=== PATIENT | female | born 1985 | race Caucasian/White ===

== ENCOUNTER → 2017-04-30 | Outpatient (CLI) | payer OTHER ==
[~2017-04-30] MED LIST: BIOT25005 PO; CALC1CAP8 PO; CALC300T4 PO; CETI-158 PO; IBUP-1221 PO; MELA1TAB22 PO; MULT-224 PO; OMEP20TA62 PO; potassium PO
[2017-04-30 15:49] LABS: HEMATOCRIT 44.2 % (34.6-47.8); HEMOGLOBIN 15.1 g/dL (11.7-16.4); WHITE BLOOD COUNT 9.6 x10^3/uL (3.4-10)
== END | disposition home or self-care (01) ==
LOC: STAR 14:40
PROVIDERS: ATTEND Obstetrics & Gynecology
DX: Z30.2 Encounter for sterilization (principal)
CPT/HCPCS: 36415; 81003; 84703; 85025

== ENCOUNTER 2018-05-06 12:52 | Emergency (ER) | payer OTHER ==
[~2018-05-06] VITALS: Ht 175.3 cm; Wt 130.5 kg
[2018-05-06 15:13] LABS: BASOPHILS # (AUTO) 0.23 x10^3/uL (0-0.1); BASOPHILS % (AUTO) 2 % (0-1); EOSINOPHILS # (AUTO) 0.22 x10^3/uL (0-0.4); EOSINOPHILS % (AUTO) 2 % (1-7); LYMPHOCYTES # (AUTO) 2.97 x10^3/uL (1-3.4); LYMPHOCYTES % (AUTO) 26 % (22-44); MD NO; MEAN CORPUSCULAR HEMOGLOBIN 31.9 pg (27.0-34.8); MEAN CORPUSCULAR HGB CONC 34.4 g/dL (32.4-35.8); MEAN CORPUSCULAR VOLUME 92.8 fL (80-100); MEAN PLATELET VOLUME 8.8 fL (7.4-10.4); MONOCYTES # (AUTO) 0.64 x10^3/uL (0.2-0.8); MONOCYTES % (AUTO) 6 % (2-9); NEUTROPHILS % (AUTO) 64 % (42-75); PLATELET COUNT 310 x10^3/uL (130-400); RED BLOOD COUNT 4.72 x10^6/uL (3.82-5.3); RED CELL DISTRIBUTION WIDTH 13.1 % (9.6-15.2)
[2018-05-06 15:14] LABS: ALBUMIN 3.9 g/dL (3.4-5.0); ANION GAP 7 mmol/L (5-15); CALCIUM 8.9 mg/dL (8.5-10.1); CHLORIDE 107 mmol/L (98-107); CREATININE 0.89 mg/dL (0.55-1.02)
[2018-05-06] MEDS ORDERED: SODIUM CHLORIDE FLUSH 10ML SYR IVF ONE (16:00)
[2018-05-06 16:38] VITALS: BP 108/68
[2018-05-06] MEDS ORDERED: OMNIPAQUE 350 MG/ML, 100ML BOTTLE ONE (16:59)
== END 2018-05-06 17:47 | disposition home or self-care (01) ==
LOC: ED 17:10
DX: R06.00 Dyspnea, unspecified (principal); R07.89 Other chest pain; R41.1 Anterograde amnesia
CPT/HCPCS: 36415; 71046; 71275; 80048; 82040; 85025; 93005; 99285; Q9967

== ENCOUNTER 2019-03-01 22:17 | Day surgery (SDC) | payer OTHER ==
[~2019-03-01] VITALS: Ht 175.3 cm; Wt 128.4 kg
[~2019-03-01 22:17] MED LIST changes: -MULT-224 PO; +MULT-642 PO
[2019-03-01] MEDS ORDERED: SODIUM CHLORIDE FLUSH 10ML SYR IVF ONE (23:00)
[2019-03-01] MEDS ORDERED: FAMOTIDINE 20 MG/2 ML IVP ONE (23:00)
[2019-03-01] MEDS ORDERED: ONDANSETRON 2MG/ML, 2ML IVPush ONE (23:00)
[2019-03-01] MEDS ORDERED: MAALOX/HYOSCYAMINE/LIDOCAINE 45 ML BTL PO ONE (23:00)
[2019-03-01 23:31] LABS: BASOPHILS # (AUTO) 0.04 x10^3/uL (0-0.1); BASOPHILS % (AUTO) 0 % (0-1); EOSINOPHILS # (AUTO) 0.22 x10^3/uL (0-0.4); EOSINOPHILS % (AUTO) 3 % (1-7); LYMPHOCYTES # (AUTO) 2.59 x10^3/uL (1-3.4); LYMPHOCYTES % (AUTO) 29 % (22-44); MD NO; MEAN CORPUSCULAR HEMOGLOBIN 30.5 pg (27.0-34.8); MEAN CORPUSCULAR VOLUME 92.5 fL (80-100); MEAN PLATELET VOLUME 8.3 fL (7.4-10.4); MONOCYTES # (AUTO) 0.64 x10^3/uL (0.2-0.8); MONOCYTES % (AUTO) 7 % (2-9); NEUTROPHILS # (AUTO) 5.38 x10^3/uL (1.8-6.8); NEUTROPHILS % (AUTO) 61 % (42-75); PLATELET COUNT 265 x10^3/uL (130-400); RED BLOOD COUNT 4.38 x10^6/uL (3.82-5.3); RED CELL DISTRIBUTION WIDTH 14.3 % (9.6-15.2)
[2019-03-01 23:44] LABS: ALANINE AMINOTRANSFERASE 57 U/L (12-78); ALBUMIN 3.5 g/dL (3.4-5.0); ANION GAP 8 mmol/L (5-15); CALCIUM 8.7 mg/dL (8.5-10.1); CHLORIDE 108 mmol/L (98-107); CREATININE 0.76 mg/dL (0.55-1.02)
[2019-03-01 23:49] LABS: ALKALINE PHOSPHATASE 89 U/L (45-117); BILIRUBIN,TOTAL 0.4 mg/dL (0.2-1.0); TOTAL PROTEIN 7.6 g/dL (6.4-8.2)
--- NOTE | 2019-03-02 00:41 | NUR ---
PT IS HERE FOR EPIGASTRIC PAIN WITH LOWER BACK PAIN X 2 WEEKS. PT REPORTS THAT SHE HAS BEEN UNCOMFRTABLE WITH NO RELEIF. PT REPROTS HX OF GERDS AND NOT FEELING WELL PT DENIES INCREASED URINARY FREQUENCY OR PAINFUL URINATION. PT UNABLE TO PROVIDE UA. PT DENIES TRUAMA OR RECENT TRAVERL OR INGESTION OF NEW FOODS. PT IN BED, AWAITING FURTHER ORDERS. CALL LIGHT IN REACH.
[2019-03-02] MEDS ORDERED: MAALOX/HYOSCYAMINE/LIDOCAINE 45 ML BTL ONE (00:52)
[2019-03-02] MEDS ORDERED: ONDANSETRON 2MG/ML, 2ML ONE ×4 (00:52→05:18)
[2019-03-02] MEDS ORDERED: FAMOTIDINE 20 MG/2 ML ONE (00:52)
[2019-03-02] MEDS ORDERED: ONDANSETRON ODT 4 MG ONE (01:17)
[2019-03-02] MEDS ORDERED: FAMOTIDINE 20 MG TABLET ONE (01:17)
--- NOTE | 2019-03-02 01:32 | NUR ---
PT AT THIS TIME WOULD LIKE TO DO A OUTPT PROCEDURE. DISCUSSED WITH PT. PT VERBALIZED UNDERSTANDING. PT MEDICATED PER EMAR.
[2019-03-02] MEDS ORDERED: FAMOTIDINE 20 MG TABLET PO ONE (02:00)
[2019-03-02] MEDS ORDERED: ONDANSETRON ODT 4 MG PO ONE (02:00)
--- NOTE | 2019-03-02 02:11 | NUR ---
US CALLED TO WHY DELAY IN US READ IS OCCURING.
[2019-03-02] MEDS ORDERED: KETOROLAC 30 MG/1 ML ONE ×2 (02:22→05:18)
[2019-03-02] MEDS ORDERED: KETOROLAC 30 MG/1 ML IM ONE (02:30)
--- NOTE | 2019-03-02 02:58 | NUR ---
ASSUMED CARE OF PATIENT. REPORT GIVEN FROM FABIOLA HENRIQUEZ. PT IS NOT ABLE TO GIVE A UA AT THIS TIME.
[2019-03-02] MEDS ORDERED: SODIUM CHLORIDE 0.9% 1,000 ML IV ONE (03:01)
[2019-03-02] MEDS ORDERED: D5%-0.45% NACL 1,000 ML IV ONE (03:03)
[2019-03-02] MEDS ORDERED: CEFOTETAN PMX 1GM/50ML 50 ML ONE (03:04)
--- NOTE | 2019-03-02 03:07 | NUR ---
PIV PLACED AND MEDICATED PER EMAR. PT REPORT GIVEN TO MALISSA HICKS.
[2019-03-02] MEDS ORDERED: MORPHINE SULFATE 4 MG/ML, 1ML ONE (03:11)
--- NOTE | 2019-03-02 03:17 | NUR ---
NO BLOOD CULTURES NEEDED PER DR ELIZABETH
[2019-03-02] MEDS ORDERED: ONDANSETRON 2MG/ML, 2ML IVPush PRN ×2 (03:30→13:00)
[2019-03-02] MEDS ORDERED: CEFOTETAN PMX 1GM/50ML 50 ML IVPB ONE (03:30)
[2019-03-02] MEDS ORDERED: MORPHINE SULFATE 4 MG/ML, 1ML IVPush PRN ×4 (03:30→08:00)
[2019-03-02] MEDS ORDERED: ONDANSETRON 2MG/ML, 2ML IVPush ONE (03:30)
[2019-03-02] MEDS ORDERED: BUPIVACAINE/PF 0.25% ONE (03:33)
[2019-03-02] MEDS ORDERED: EPINEPHRINE 1 MG/ML, 1ML ONE (03:33)
[2019-03-02] MEDS ORDERED: BUPIVACAINE/PF-EPI 0.25% 1:200K IM ONE (03:58)
[2019-03-02] MEDS ORDERED: MIDAZOLAM 1 MG/ML, 2ML ONE ×2 (04:58→05:51)
[2019-03-02] MEDS ORDERED: FENTANYL PF 250 MCG/5ML ONE (04:58)
[2019-03-02] MEDS ORDERED: LIDOCAINE 2%, 6 ML JEL.PF.APP MM ONE (05:01)
[2019-03-02] MEDS ORDERED: PROPOFOL 10 MG/ML, 20ML ONE (05:15)
[2019-03-02] MEDS ORDERED: ROCURONIUM 10MG/ML,5ML ONE (05:16)
[2019-03-02] MEDS ORDERED: SUCCINYLCHOLINE 20 MG/ML, 10ML ONE (05:18)
[2019-03-02] MEDS ORDERED: SUGAMMADEX 200 MG/2 ML IVPush ONE (05:18)
[2019-03-02] MEDS ORDERED: DEXAMETHASONE 4 MG/ML, 1ML ONE ×2 (05:18)
[2019-03-02] MEDS ORDERED: EPHEDRINE 50 MG/ML, 1ML IVPush PRN (05:30)
[2019-03-02] MEDS ORDERED: ALBUTEROL SULFATE 2.5 MG/3 ML NPPB PRN (05:30)
[2019-03-02] MEDS ORDERED: PROMETHAZINE 12.5 MG SUPP PR PRN (05:30)
[2019-03-02] MEDS ORDERED: ONDANSETRON 2MG/ML, 2ML IV PRN (05:30)
[2019-03-02] MEDS ORDERED: DIAZEPAM 5 MG/ML, 2ML IVPush PRN (05:30)
[2019-03-02] MEDS ORDERED: HYDROmorphone 2 MG/ML, 1ML IVPush PRN (05:30)
[2019-03-02] MEDS ORDERED: MIDAZOLAM 1 MG/ML, 2ML IV PRN (05:30)
[2019-03-02] MEDS ORDERED: ACETAMINOPHEN 325 MG TABLET PO PRN (05:30)
[2019-03-02] MEDS ORDERED: ONDANSETRON ODT 8 MG PO PRN (05:30)
[2019-03-02] MEDS ORDERED: MEPERIDINE/PF 25MG/0.5ML IVPush PRN (05:30)
[2019-03-02] MEDS ORDERED: LABETALOL 5MG/ML, 20ML IV PRN (05:30)
[2019-03-02] MEDS ORDERED: OXYcodone 5 MG/5 ML ORAL.SOL UDC PO PRN (05:30)
[2019-03-02] MEDS ORDERED: HALOPERIDOL 5 MG/ML IV PRN (05:30)
[2019-03-02] MEDS ORDERED: hydrALAzine 20 MG/ML, 1ML IV PRN (05:30)
[2019-03-02] MEDS ORDERED: PROMETHAZINE 25 MG/ML, 1ML IV PRN (05:30)
[2019-03-02] MEDS ORDERED: FENTANYL PF 100 MCG/2ML ONE (05:41)
[2019-03-02] MEDS ORDERED: OXYcodone 5 MG/5 ML ORAL.SOL UDC ONE (05:42)
[2019-03-02] MEDS: FENTANYL PF 100 MCG/2ML IV PRN ×2 (05:45→06:05)
[2019-03-02] MEDS ORDERED: MIDAZOLAM 1 MG/ML, 5ML ONE (05:50)
[2019-03-02] MEDS ORDERED: HYDROmorphone 2 MG/ML, 1ML ONE (06:24)
[2019-03-02 07:17] VITALS: BP 122/81
[2019-03-02] MEDS ORDERED: HYDROcodone/APAP 5/325 TABLET PO PRN (08:00)
[2019-03-02] MEDS ORDERED: HYDR-3240 PO (09:29)
[2019-03-02 10:17] VITALS: BP 125/84
[2019-03-02 14:09] LABS: CULTURE INDICATED? YES; MICROSCOPIC AUTO
== END 2019-03-06 12:46 | disposition home or self-care (01) ==
LOC: SDC 03-02 03:09 → ED 03-02 03:09 → UNDOADMIN 03-02 03:10 → EDIP 03-02 03:10 → 4NOR 03-02 06:45 → DCLOUNGE 03-02 14:34 → UNDODISIN 03-02 14:45 → SDC 03-06 12:46
PROVIDERS: ATTEND Emergency Medicine
DX: K80.00 Calculus of gallbladder with acute cholecystitis without obstruction (principal); K21.9 Gastro-esophageal reflux disease without esophagitis; F41.9 Anxiety disorder, unspecified; E66.01 Morbid (severe) obesity due to excess calories; F17.290 Nicotine dependence, other tobacco product, uncomplicated; Z79.899 Other long term (current) drug therapy; Z98.51 Tubal ligation status
CPT/HCPCS: 36415; 47562; 76700; 80053; 81001; 83690; 84703; 85025; 87086; 88304; 96374; 99285; J0171; J0330; J1100; J1885; J2250; J2270; J2405; J2704; J3010; J3490; J7030; Q0162